=== PATIENT | female | born 1975 ===

== ENCOUNTER 2018-01-19 11:07 | Emergency (ER) | payer OTHER ==
[~2018-01-19] VITALS: Ht 165.1 cm; Wt 68.0 kg
[~2018-01-19 11:07] MED LIST: ALBU90OI INH; CODGUAEL PO; IBUP600 PO; Tamiflu75 MG PO
[2018-01-19] MEDS ORDERED: Norco 5-325 Ta1 EACH PO (12:54)
== END 2018-01-19 13:16 | disposition home or self-care (01) ==
LOC: ER 11:07
DX: M70.852 Other soft tissue disorders related to use, overuse and pressure, left thigh (principal)
CPT/HCPCS: 81000; 81025; 96372; 99283; J1030

== ENCOUNTER 2018-03-23 17:17 | Emergency (ER) | payer OTHER ==
[~2018-03-23] VITALS: Ht 152.4 cm; Wt 52.2 kg
[~2018-03-23 17:17] MED LIST changes: +Norco 5-325 Ta1 EACH PO
[2018-03-23 17:47] LABS: Source, Urine Clean Catch
[2018-03-23 17:57] LABS: Appearance, Urine Clear (Clear); Bilirubin, Urine Neg (Neg); Blood, Urine Neg (Neg); Color, Urine Yellow (P-Yellow); Glucose Qualitative, Urine Neg (Neg); Ketones, Urine Neg (Neg); Leukocyte Esterase, Urine Neg (Neg); Nitrite, Urine Neg (Neg); Protein, Urine Neg (Neg); Urobilinogen, Urine NORM (Normal)
[2018-03-23] MEDS ORDERED: IBUP800 PO (18:20)
[2018-03-23] MEDS ORDERED: CYCL10 PO (18:21)
== END 2018-03-23 18:32 | disposition home or self-care (01) ==
LOC: ER 17:17
PROVIDERS: Physician Assistant
DX: R10.9 Unspecified abdominal pain (principal)
CPT/HCPCS: 81003; 81025; 99283

== ENCOUNTER 2019-04-01 11:31 | Emergency (ER) | payer OTHER ==
[~2019-04-01] VITALS: Ht 165.1 cm; Wt 52.2 kg
[~2019-04-01 11:31] MED LIST changes: +CYCL10 PO; +IBUP800 PO
== END 2019-04-01 12:46 | disposition home or self-care (01) ==
LOC: ER 11:31
DX: R60.0 Localized edema (principal)
CPT/HCPCS: 99283

== ENCOUNTER → 2020-07-04 | Outpatient (CLI) | payer OTHER | END | disposition home or self-care (01) | LOC: LAB SHORT 15:14 | DX: L72.3 Sebaceous cyst (principal) | CPT/HCPCS: 87070; 87075; 87076; 87205 ==

== ENCOUNTER 2021-09-06 23:56 | Emergency (ER) | payer OTHER ==
[~2021-09-06] VITALS: Ht 165.1 cm; Wt 63.5 kg
[2021-09-08] MEDS ORDERED: Voltaren100 GM TOP (11:39)
[2021-09-08] MEDS ORDERED: Robaxin750 MG PO (11:39)
[2021-09-08] MEDS ORDERED: METSALMENC TOP (11:39)
== END 2021-09-07 01:13 | disposition home or self-care (01) ==
LOC: ER 23:56
DX: M25.511 Pain in right shoulder (principal)
CPT/HCPCS: 99284; A9270

== ENCOUNTER 2021-09-08 10:52 | Emergency (ER) | payer OTHER ==
[~2021-09-08] VITALS: Ht 154.9 cm; Wt 52.2 kg
[2021-09-08] MEDS ORDERED: METSALMENC TOP (11:39)
[2021-09-08] MEDS ORDERED: Voltaren100 GM TOP (11:39)
[2021-09-08] MEDS ORDERED: Robaxin750 MG PO (11:39)
== END 2021-09-08 11:51 | disposition home or self-care (01) ==
LOC: ER 10:52
DX: S43.421A Sprain of right rotator cuff capsule, initial encounter (principal); X50.9XXA Other and unspecified overexertion or strenuous movements or postures, initial encounter
CPT/HCPCS: 96372; 99283-25; A9270; J1885

== ENCOUNTER → 2022-03-02 | Outpatient (CLI) | payer OTHER ==
[~2022-03-02] MED LIST changes: +METSALMENC TOP; +Robaxin750 MG PO; +Voltaren100 GM TOP
[2022-03-02 19:27] LABS: BASOPHILS ABSOLUTE AUTO 0.01 K/mm3 (0.00-0.23); BASOPHILS PERCENT AUTO 0 % (0-2); EOSINOPHILS ABSOLUTE AUTO 0.01 K/mm3 (0.00-0.68); EOSINOPHILS PERCENT AUTO 0 % (0-6); Hematocrit 32.9 % (33.0-51.0); Hemoglobin 9.9 g/dL (11.5-16.0); IMMATURE GRAN PERCENT AUTO 0 % (0-1); LYMPHOCYTES ABSOLUTE AUTO 1.34 K/mm3 (0.84-5.20); LYMPHOCYTES PERCENT AUTO 34 % (21-46); MONOCYTES ABSOLUTE AUTO 0.33 K/mm3 (0.16-1.47); MONOCYTES PERCENT AUTO 8 % (4-13); Mean Corpuscular HGB 22.6 pg (26.0-34.0); Mean Corpuscular HGB Conc 30.1 g/dL (31.5-36.5); Mean Corpuscular Volume 75 fL (80-100); NEUTROPHILS ABSOLUTE AUTO 2.27 K/mm3 (1.96-9.15); NEUTROPHILS PERCENT AUTO 57 % (41-73); Platelet Count 122 K/mm3 (150-400); RDW Coefficient Variation 15.2 % (11.7-14.2); RDW Standard Deviation 41.1 fL (35.1-46.3); Red Blood Cell Count 4.39 M/mm3 (3.80-5.20); White Blood Cell Count 3.96 K/mm3 (4.00-11.30)
[2022-03-02 19:29] LABS: Very Low Density Lipoprot Chol 7 mg/dL (6-32)
[2022-03-02 19:40] LABS: Alanine Aminotransfer (ALT/SGP 39 U/L (12-78); Albumin, Blood 3.7 g/dL (3.4-5.0); Albumin/Globulin Ratio 0.9 (0.8-1.8); Alk Phos 166 U/L (50-136); Anion Gap 6 mmol/L (6-16); Aspartate Aminotrans (AST/SGOT 39 U/L (12-37); Bilirubin, Total 1.6 mg/dL (0.1-1.0); Blood Urea Nitrogen 7 mg/dL (8-24); Bun/Creatinine Ratio 25.8 (12.0-20.0); CHOL/HDL RATIO 1.4; CO2, Blood 25 mmol/L (21-32); Chloride, Blood 108 mmol/L (98-108); Cholesterol 90 mg/dL (50-200); Creatinine, Blood 0.27 mg/dL (0.40-1.00); Glomerular Filtration Rate 136 (60-); Glucose, Blood 72 mg/dL (70-99); HDL Cholesterol 64 mg/dL (>39); LDL/HDL RATIO 0.3; Low Density Lipoprotein Chol 19 mg/dL (0-110); Potassium, Blood 3.8 mmol/L (3.5-5.5); Sodium, Blood 139 mmol/L (136-145); Thyroid Stimulating Hormone <0.005 uIU/mL (0.360-4.800); Total Protein, Blood 7.7 g/dL (6.4-8.2); Triglycerides 37 mg/dL (30-160)
[2022-03-06 16:50] LABS: Free Thyroxine 6.03 ng/dL (0.70-1.60)
[2022-03-06 16:52] LABS: Triiodothyronine, Free 17.45 pg/mL (2.18-3.98)
== END | disposition home or self-care (01) ==
LOC: LAB SHORT 17:32 → LAB 17:32
PROVIDERS: Family Medicine
DX: Z11.59 Encounter for screening for other viral diseases (principal); Z13.6 Encounter for screening for cardiovascular disorders; R63.4 Abnormal weight loss; R79.89 Other specified abnormal findings of blood chemistry; Z79.899 Other long term (current) drug therapy
CPT/HCPCS: 80053; 80061; 84439; 84443; 84481; 85025; 86803

== ENCOUNTER 2022-10-05 13:49 | Emergency (ER) | payer OTHER ==
[~2022-10-05] VITALS: Ht 167.6 cm; Wt 38.6 kg
== END 2022-10-05 14:47 | disposition left against medical advice (07) ==
LOC: ER 13:49
DX: J02.9 Acute pharyngitis, unspecified (principal); Z53.21 Procedure and treatment not carried out due to patient leaving prior to being seen by health care provider
CPT/HCPCS: 99282

== ENCOUNTER 2022-10-08 12:38 | Emergency (ER) | payer OTHER ==
[~2022-10-08] VITALS: Ht 167.6 cm; Wt 55.8 kg
[2022-10-08 14:23] LABS: BASOPHILS ABSOLUTE AUTO 0.02 K/mm3 (0.00-0.23); BASOPHILS PERCENT AUTO 0 % (0-2); EOSINOPHILS ABSOLUTE AUTO 0.01 K/mm3 (0.00-0.68); EOSINOPHILS PERCENT AUTO 0 % (0-6); Hematocrit 32.7 % (33.0-51.0); Hemoglobin 9.9 g/dL (11.5-16.0); IMMATURE GRAN ABSOLUTE AUTO 0.01 K/mm3 (0.00-0.10); IMMATURE GRAN PERCENT AUTO 0 % (0-1); LYMPHOCYTES ABSOLUTE AUTO 1.63 K/mm3 (0.84-5.20); LYMPHOCYTES PERCENT AUTO 31 % (21-46); MONOCYTES ABSOLUTE AUTO 0.56 K/mm3 (0.16-1.47); MONOCYTES PERCENT AUTO 11 % (4-13); Mean Corpuscular HGB 22.4 pg (26.0-34.0); Mean Corpuscular HGB Conc 30.3 g/dL (31.5-36.5); Mean Corpuscular Volume 74 fL (80-100); NEUTROPHILS ABSOLUTE AUTO 3.09 K/mm3 (1.96-9.15); NEUTROPHILS PERCENT AUTO 58 % (41-73); Platelet Count 116 K/mm3 (150-400); RDW Coefficient Variation 16.5 % (11.7-14.2); RDW Standard Deviation 43.9 fL (35.1-46.3); Red Blood Cell Count 4.42 M/mm3 (3.80-5.20); White Blood Cell Count 5.32 K/mm3 (4.00-11.30)
[2022-10-08 14:50] LABS: Albumin, Blood 3.7 g/dL (3.4-5.0); Albumin/Globulin Ratio 0.8 (0.8-1.8); Bilirubin, Total 2.2 mg/dL (0.1-1.0); Bun/Creatinine Ratio 47.3 (12.0-20.0); Calcium, Blood 9.1 mg/dL (8.5-10.1); Creatinine, Blood 0.32 mg/dL (0.40-1.00); Globulin, Blood 4.4 g/dL (2.2-4.0); Potassium, Blood 3.8 mmol/L (3.5-5.5); Total Protein, Blood 8.1 g/dL (6.4-8.2)
[2022-10-08] MEDS ORDERED: ERYT.5TO BOTHEYES (15:54)
== END 2022-10-08 16:27 | disposition home or self-care (01) ==
LOC: ER 12:38
PROVIDERS: Physician Assistant
DX: H57.13 Ocular pain, bilateral (principal)
CPT/HCPCS: 36415; 80053; 82947; 83690; 85025; 99283; A9270

== ENCOUNTER → 2025-03-16 | Outpatient (CLI) | payer OTHER ==
[~2025-03-16] MED LIST changes: +ERYT.5TO BOTHEYES
== END ==
LOC: LAB SHORT 10:00 → LAB 10:00
DX: B35.3 Tinea pedis (principal)
CPT/HCPCS: 87210